=== PATIENT | male | born 1990 | race Caucasian/White ===

== ENCOUNTER 2017-03-27 13:13 | Emergency (ER) | payer BC ==
[2017-03-27 13:28] VITALS: BP 119/74
--- NOTE | 2017-03-27 15:24 | UC ---
Throat Pain/Nasal Neal HPI - HPI Summary HPI Summary: Marked nasal congestion, sneezing, and sinus pressure starting about a week ago. Denies fever, ST, or trouble breathing. Has had seasonal allergies in the past. Girlfriend recently dx with influenza, daughter has strep. - History of Current Complaint Chief Complaint: UCRespiratory Stated Complaint: LOAIZA,SINUS,CONGEST, Time Seen by Provider: 03/27/17 15:01 Hx Obtained From: Patient Onset/Duration: Gradual Onset, Lasting Days Severity: Moderate Cough: Nonproductive Associated Signs & Symptoms: Positive: Sinus Discomfort, Nasal Discharge. Negative: Fever, Vomiting, Rash - Allergies/Home Medications Allergies/Adverse Reactions: Allergies Allergy/AdvReac Type Severity Reaction Status Date / Time No Known Allergies Allergy Verified 05/15/15 08:01 PMH/Surg Hx/FS Hx/Imm Hx Previously Healthy: Yes Respiratory History Of: Reports: Asthma - Surgical History Surgical History: None - Family History Known Family History: Positive: Respiratory Disease - asthma - Social History Lives: With Family Alcohol Use: Daily Alcohol Amount: weekends Substance Use Type: None Smoking Status (MU): Former Smoker Type: Smokeless Tobacco Amount Used/How Often: 1 can per day Length of Time of Smoking/Using Tobacco: ten years Have You Smoked in the Last Year: No Review of Systems Constitutional: Negative Skin: Negative Eyes: Negative ENT: Nasal Discharge Respiratory: Cough Cardiovascular: Negative Gastrointestinal: Negative Genitourinary: Negative Motor: Negative Neurovascular: Negative Musculoskeletal: Negative Neurological: Negative Psychological: Negative All Other Systems Reviewed And Are Negative: Yes Physical Exam Triage Information Reviewed: Yes Appearance: Well-Appearing, No Pain Distress, Well-Nourished Vital Signs: Initial Vital Signs Temp 98.0 F 03/27/17 13:26 Pulse 86 03/27/17 13:26 Resp 16 03/27/17 13:26 BP 119/74 03/27/17 13:26 Pulse Ox 100 03/27/17 13:26 Vital Signs Reviewed: Yes Eye Exam: Normal Eyes: Positive: Conjunctiva Clear ENT: Positive: Hearing grossly normal, Nasal congestion, Nasal drainage, TMs normal Dental Exam: Normal Neck exam: Normal Neck: Positive: Supple, Nontender, No Lymphadenopathy Respiratory Exam: Normal Respiratory: Positive: Chest non-tender, Lungs clear, Normal breath sounds, No respiratory distress, No accessory muscle use Cardiovascular Exam: Normal Cardiovascular: Positive: RRR, No Murmur Musculoskeletal Exam: Normal Neurological Exam: Normal Neurological: Positive: Alert Psychological Exam: Normal Skin Exam: Normal Throat Pain/Nasal Course/Dx - Differential Dx/Diagnosis Provider Diagnoses: Allergic rhinitis. allergic sinusitis Discharge - Discharge Plan Condition: Stable Disposition: HOME Prescriptions: Cetirizine* [ZyrTEC 10 MG TAB*] 10 mg PO DAILY #30 tab Mometasone NASAL (NF) [Nasonex (NF)] 2 spray BOTH NARES DAILY #1 nasal.spr predniSONE TAB* [Deltasone TAB*] 50 mg PO DAILY #4 tab Patient Education Materials: Allergic Rhinitis (ED) Referrals: No Primary Care Phys,NOPCP [Primary Care Provider] - Additional Instructions: I think your allergies have sparked a significant sinusitis as well, but there is no indication that this is bacterial at this time. If you have worsening symptoms, fever, facial swelling, or if you do not improve at all in the next 4 days, please call or return.
== END 2017-03-27 15:22 | disposition home or self-care (01) ==
LOC: UCEAST 13:13
DX: J45.909 Unspecified asthma, uncomplicated (principal); Z87.891 Personal history of nicotine dependence
CPT/HCPCS: 99212; G0463

== ENCOUNTER 2019-09-12 13:51 | Emergency (ER) | payer SELFPAY ==
--- NOTE | 2019-09-12 15:27 | ED ---
Abdominal Pain/Male - HPI Summary HPI Summary: Pt is a 29 y/o M presenting to the ED for a chief complaint of epigastric abdominal pain. Pt states he has had epigastric abdominal pain, diarrhea, and nausea for the last month and a half. Pt describes the pain as cramping and states the pain occasionally lasts all day. Pt states the diarrhea is soft and liquid, with occasional black stools. Pt reports the abdominal pain sometimes occurs 10 minutes after eating. Pt admits he vomited on 09/10/19. Pt reports the abdominal pain is improved at the present time. Pt denies fever. Pt has a PMHx of asthma, but denies any PSHx. Allergies noted. - History of Current Complaint Chief Complaint: EDAbdPain Stated Complaint: UNCOMFORTABLE FEELING IN STOMACH PER PT Time Seen by Provider: 09/12/19 15:11 Hx Obtained From: Patient Onset/Duration: Lasting Weeks, Still Present Timing: Intermittent, Lasting Weeks Severity Initially: Severe Severity Currently: Moderate Pain Intensity: 8 Pain Scale Used: 0-10 Numeric Location: Epigastric Radiates: No Character: Cramping Aggravating Factor(s): Food Alleviating Factor(s): Nothing Associated Signs And Symptoms: Positive: Nausea, Vomiting, Diarrhea, Other - Occasional black stools. Negative: Fever - Allergies/Home Medications Allergies/Adverse Reactions: Allergies Allergy/AdvReac Type Severity Reaction Status Date / Time No Known Allergies Allergy Verified 09/12/19 14:06 PMH/Surg Hx/FS Hx/Imm Hx Previously Healthy: Yes Respiratory History: Reports: Hx Asthma Sensory History: Denies: Hx Legally Blind, Hx Deafness Opthamlomology History: Denies: Hx Legally Blind EENT History: Denies: Hx Deafness - Surgical History Surgical History: None Surgery Procedure, Year, and Place: None Infectious Disease History: No Infectious Disease History: Denies: Hx Clostridium Difficile, Hx Hepatitis, Hx Human Immunodeficiency Virus (HIV), Hx of Known/Suspected MRSA, Hx Shingles, Hx Tuberculosis, Hx Known/ Suspected VRE, Hx Known/Suspected VRSA, History Other Infectious Disease, Traveled Outside the [place] in Last 30 Days - Family History Known Family History: Positive: Respiratory Disease - asthma - Social History Alcohol Use: Daily Alcohol Amount: weekends Hx Substance Use: No Substance Use Type: Reports: None Hx Tobacco Use: Yes Smoking Status (MU): Former Smoker Type: Smokeless Tobacco Amount Used/How Often: 1 can per day Length of Time of Smoking/Using Tobacco: ten years Have You Smoked in the Last Year: No Review of Systems Negative: Fever Positive: Abdominal Pain - Epigastric, Vomiting, Diarrhea, Nausea, Other - Occasional black stools All Other Systems Reviewed And Are Negative: Yes Physical Exam - Summary Physical Exam Summary: Appearance: The patient is well-nourished in no acute distress and in no acute pain. Skin: The skin is warm and dry, and skin color reflects adequate perfusion. HEENT: The head is normocephalic and atraumatic. The pupils are equal and reactive. The conjunctivae are clear and without drainage. Nares are patent and without drainage. Mouth reveals moist mucous membranes, and the throat is without erythema and exudate. The external ears are intact. The ear canals are patent and without drainage. The tympanic membranes are intact. Neck: The neck is supple with full range of motion and non-tender. There are no carotid bruits. There is no neck vein distension. Respiratory: Chest is non-tender. Lungs are clear to auscultation and breath sounds are symmetrical and equal. Cardiovascular: Heart is regular rate and rhythm. There is no murmur or rub auscultated. There is no peripheral edema and pulses are symmetrical and equal. Abdomen: The abdomen is soft. There are normal bowel sounds heard in all four quadrants and there is no organomegaly palpated. Mild epigastric tenderness. Musculoskeletal: There is no back tenderness noted. Extremities are non-tender with full range of motion. There is good capillary refill. There is no peripheral edema or calf tenderness elicited. Neurological: Patient is alert and oriented to person, place and time. The patient has symmetrical motor strength in all four extremities. Cranial nerves are grossly intact. Deep tendon reflexes are symmetrical and equal in all four extremities. Psychiatric: The patient has an appropriate affect and does not exhibit any anxiety or depression. Triage Information Reviewed: Yes Vital Signs On Initial Exam: Initial Vitals Temp Pulse Resp BP Pulse Ox 97.8 F 72 16 132/87 100 09/12/19 14:03 09/12/19 14:03 09/12/19 14:03 09/12/19 14:03 09/12/19 14:03 Vital Signs Reviewed: Yes Procedures - Sedation Patient Received Moderate/Deep Sedation with Procedure: No Diagnostics - Vital Signs Vital Signs Temp Pulse Resp BP Pulse Ox 09/12/19 14:03 97.8 F 72 16 132/87 100 - Laboratory Result Diagrams: 09/12/19 16:27 09/12/19 16:27 Lab Statement: Any lab studies that have been ordered have been reviewed, and results considered in the medical decision making process. - Ultrasound Gallbladder US Ultrasound Interpretation Completed By: Radiologist Summary of Ultrasound Findings: Gallbladder US IMPRESSION: NO ACUTE SONOGRAPHIC PATHOLOGY OF THE VISUALIZED PORTION OF THE ABDOMEN. Reviewed by ED physician. Abdominal Pain Male Course/Dx - Course Course Of Treatment: Mr. Hunter has been having problems with epigastric pain for a few weeks. Was nontoxic in appearance with stable vitals here. He did not want any medication. Labs and gallbladder ultrasound were negative and I will treat him with Prilosec until he gets a chance to follow-up with his PCP. - Diagnoses Provider Diagnoses: Epigastric pain Discharge ED - Sign-Out/Discharge Documenting (check all that apply): Patient Departure - Discharge - Discharge Plan Condition: Stable Disposition: HOME Prescriptions: Omeprazole CAP (NF) [Prilosec CAP* 20 MG] 20 mg PO BID #20 cap.dr Patient Education Materials: Epigastric Pain (ED) Referrals: [facility] [Outside] Additional Instructions: Follow up with primary care physician in 2-3 days. Return to the ED for any new or worsening symptoms. - Billing Disposition and Condition Condition: STABLE Disposition: Home - Attestation Statements Document Initiated by Denisseibe: Yes Documenting Scribe: Janessa Taylor Provider For Whom La is Documenting (Include Credential): Walt Zapata MD Scribe Attestation: Janessa Chan, scribed for Walt Zapata MD on 09/12/19 at 2054. Scribe Documentation Reviewed: Yes Provider Attestation: The documentation as recorded by the Janessa amador accurately reflects the service I personally performed and the decisions made by me, Walt Zapata MD Status of Scribe Document: Viewed
[2019-09-12 16:36] LABS: ABS Eosinophils 1.5 10^3/ul (0-0.6); ABS Lymphocytes 2.4 10^3/ul (1.0-4.8); ABS Monocytes 0.8 10^3/ul (0-0.8); ABS Neutrophils 3.2 10^3/ul (1.5-7.7); Eosinophil % 18.9 %; Hematocrit 44 % (42-52); Hemoglobin 15.2 g/dL (14.0-18.0); Lymphocyte % 30.5 %; Mean Corpuscular HGB Conc 35 g/dL (31-36); Mean Corpuscular Hemoglobin 31 pg (27-31); Mean Corpuscular Volume 90 fL (80-94); Mean Platelet Volume 8.3 fL (7.4-10.4); Nucleated Red Blood Cells % 0.1; Platelet Count 205 10^3/uL (150-450); Red Blood Count 4.88 10^6 /uL (4.18-5.48); Red Cell Distribution Width 14 % (10-15); White Blood Count 7.9 10^3/uL (3.5-10.8)
[2019-09-12 17:33] LABS: Albumin 4.1 g/dL (3.2-5.2); Albumin/Globulin Ratio 1.6 (1-3); BUN/Creatinine Ratio 11.7 (8-20); C Reactive Protein 13.87 mg/L (<8.01); Calcium 9.3 mg/dL (8.6-10.3); EGFR African American 101.9 (>60); EGFR Non-African American 84.2 (>60); Globulin 2.5 g/dL (2-4); Total Protein 6.6 g/dL (6.4-8.9)
[2019-09-12 18:33] VITALS: BP 116/60
== END 2019-09-12 18:30 | disposition home or self-care (01) ==
LOC: ED 13:51
DX: R10.13 Epigastric pain (principal); J45.909 Unspecified asthma, uncomplicated; Z87.891 Personal history of nicotine dependence
CPT/HCPCS: 36415; 76705; 80053; 83690; 85025; 86140; 99282